=== PATIENT | female | born 1930 | race Caucasian/White ===

== ENCOUNTER → 2016-10-27 | Outpatient (CLI) | payer MEDICARE, OTHER ==
[~2016-10-27] MED LIST: ALPR0.5T3 PO; APIX2.5T PO; DILA100C PO; DILT-30 PO; ESTR0.62 VAGINAL; METO100T PO; OCUVTAB4 PO; OXYM15TA PO; PANT40TA3 PO; PARO20TA2 PO
--- NOTE | 2016-10-27 18:37 | MG ---
cc: DUYEN CAMPA M.D. Lab No: Date: 10/27/2016 Age: Sex: F Race: REQUESTING PHYSICIAN Dr. Howard INTRODUCTION An EEG was obtained on this 86-year-old patient with a history of seizure. DESCRIPTION The patient is described as awake during this study. The EEG is showing low amplitude 10-14 per second rhythm in the central and posterior head regions. The background is reactive. There are beta rhythms centrally and frontally. Photic stimulation disclosed a bilateral driving response. Hyperventilation was unremarkable. Intermittent occasional theta activity is noted in the central and temporal head regions. INTERPRETATION Normal predominantly awake EEG. MD CLEO David/KK /5:54 PM /6:34 PM
== END ==
LOC: HEEG 09:42
PROVIDERS: ATTEND Family Medicine
DX: G40.89 Other seizures (principal)
CPT/HCPCS: 95819